=== PATIENT | male | born 1990 | race African-American/Black ===

== ENCOUNTER 2019-05-27 08:18 | Emergency (ER) | payer OTHER, MEDICAID ==
[~2019-05-27] VITALS: Ht 182.9 cm; Wt 96.8 kg
[2019-05-27 09:00] VITALS: BP 128/79
[2019-05-27] MEDS ORDERED: IBUPROFEN 800 MG TABLET PO ONE (09:00)
== END 2019-05-27 09:09 | disposition home or self-care (01) ==
LOC: EMS 08:21
DX: L02.212 Cutaneous abscess of back [any part, except buttock and flank] (principal)